=== PATIENT | female | born 1940 | race Caucasian/White ===

== ENCOUNTER → 2016-12-03 | Day surgery (SDC) | payer MEDICARE ==
[~2016-12-03] VITALS: Ht 162.6 cm; Wt 85.3 kg
[~2016-12-03] MED LIST: 0.9% Sodium Chloride 1,000 ML IV SCH; CALC-696 PO; GLUC-123 PO; LEVO75TA4 PO; MULT-1018 PO; NAPR220C16 PO; Sodium Chloride LOK Flush 10 mL Syringe IV PRN; fentaNYL-PF 50 mCg/mL 2 mL Inj IVPUSH PRN
[2016-12-03 09:33] VITALS: BP 146/78; PULSE 91; RESP 14; O2SAT 98
[2016-12-03 10:29] VITALS: BP 131/84; PULSE 97; RESP 14; O2SAT 98
[2016-12-03 10:41] VITALS: BP 131/67; PULSE 95; RESP 12; O2SAT 96
[2016-12-03 10:47] VITALS: BP 127/76; PULSE 98; RESP 12; O2SAT 98
--- NOTE | 2016-12-03 11:24 | ENDO ---
[address] [address] ENDOSCOPY PROCEDURE PATIENT: OLEKSANDR DELGADO : 1940 MR#: [id number] ADMIT: 12/03/2016 JOB ID: [id number] DATE: 12/03/2016 PROCEDURE: Colonoscopy. INDICATIONS: A 76-year-old female with a personal history of colon polyps returning for surveillance. She had a limited colon resection for a polyp that could not be removed endoscopically back in 1999. EQUIPMENT: PCF-H180AL SEDATION: 1. Versed 5 mg 2. Fentanyl 100 mcg COMPLICATIONS: None identified. BOWEL PREPARATION: Fair, adequate exam. PROCEDURE INFO: After the risks and benefits were explained, written and verbal informed consent was obtained. The patient was brought into the endoscopy suite and placed into the left lateral decubitus position. Sedation was achieved using the above-stated medications with the addition of oxygen via nasal cannula. A digital rectal examination disclosed mild internal hemorrhoids. No significant pathology appreciated. The scope was introduced into the rectum and advanced to the cecum as identified by the appendiceal orifice and ileocecal valve. The scope was slowly withdrawn to carefully examine the mucosa for any defects or lesions. Multiple direct views were made through the dentate line for exclusion of pathology. The colon was decompressed. Scope removed from the patient who tolerated the procedure well. FINDINGS: The patient had a patent side-to-end anastomosis in the sigmoid colon. There was a classic appearing lipoma in the ascending colon. No other significant pathology was appreciated throughout. ENDOSCOPIC DIAGNOSES: 1. Normal anastomosis. 2. Ascending colon lipoma. 3. Mild hemorrhoids. RECOMMENDATIONS: Repeat colonoscopy in five years' time.
== END | disposition home or self-care (01) ==
LOC: END 00:48
PROVIDERS: ATTEND Internal Medicine Gastroenterology
DX: Z12.11 Encounter for screening for malignant neoplasm of colon (principal); D17.79 Benign lipomatous neoplasm of other sites; K63.89 Other specified diseases of intestine; K64.8 Other hemorrhoids; Z86.010 Personal history of colon polyps; E04.2 Nontoxic multinodular goiter; E66.9 Obesity, unspecified; Z68.33 Body mass index [BMI] 33.0-33.9, adult
CPT/HCPCS: 99153; G0105; G0500; J2250; J3010; J7030